=== PATIENT | female | born 1975 | race Caucasian/White ===

== ENCOUNTER → 2017-06-03 | Outpatient (CLI) | payer BC ==
[~2017-06-03] MED LIST: K-Dur20 MEQ PO; LINZESS72 MCG; MELA3; TAMO10; TRAM50; Tamiflu75 MG PO
[2017-06-03 15:51] LABS: BASOPHILS ABSOLUTE AUTO 0.05 K/mm3 (0.00-0.23); BASOPHILS PERCENT AUTO 1 % (0-2); EOSINOPHILS ABSOLUTE AUTO 0.08 K/mm3 (0.00-0.68); EOSINOPHILS PERCENT AUTO 1 % (0-6); Hematocrit 38.5 % (33.0-51.0); Hemoglobin 13.3 g/dL (11.5-16.0); IMMATURE GRAN ABSOLUTE AUTO 0.01 K/mm3 (0.00-0.10); IMMATURE GRAN PERCENT AUTO 0 % (0-1); LYMPHOCYTES ABSOLUTE AUTO 2.26 K/mm3 (0.84-5.20); LYMPHOCYTES PERCENT AUTO 38 % (21-46); MONOCYTES ABSOLUTE AUTO 0.32 K/mm3 (0.16-1.47); MONOCYTES PERCENT AUTO 5 % (4-13); Mean Corpuscular HGB 30.6 pg (26.0-34.0); Mean Corpuscular HGB Conc 34.5 g/dL (31.5-36.5); Mean Corpuscular Volume 89 fL (80-100); Mean Platelet Volume 10.7 fL (9.1-12.4); NEUTROPHILS ABSOLUTE AUTO 3.28 K/mm3 (1.96-9.15); NEUTROPHILS PERCENT AUTO 55 % (41-73); Platelet Count 143 K/mm3 (150-400); RDW Coefficient Variation 13.1 % (11.7-14.2); RDW Standard Deviation 42.5 fL (35.1-46.3); Red Blood Cell Count 4.34 M/mm3 (3.80-5.20)
[2017-06-03 16:00] LABS: Alanine Aminotransfer (ALT/SGP 19 U/L (12-78); Albumin, Blood 4.3 g/dL (3.4-5.0); Albumin/Globulin Ratio 1.4 (0.8-1.8); Alk Phos 44 U/L (40-126); Anion Gap 10 mmol/L (6-16); Aspartate Aminotrans (AST/SGOT 16 U/L (12-37); Bilirubin, Total 0.4 mg/dL (0.1-1.0); Blood Urea Nitrogen 8 mg/dL (8-24); Bun/Creatinine Ratio 9.4 (12.0-20.0); CO2, Blood 27 mmol/L (21-32); Calcium, Blood 9.3 mg/dL (8.5-10.1); Chloride, Blood 103 mmol/L (98-108); Creatinine, Blood 0.85 mg/dL (0.40-1.00); Glomerular Filtration Rate >60 (60-); Glucose, Blood 80 mg/dL (70-99); Potassium, Blood 3.7 mmol/L (3.5-5.5); Sodium, Blood 140 mmol/L (136-145); Total Protein, Blood 7.3 g/dL (6.4-8.2)
== END | disposition home or self-care (01) ==
LOC: LAB 15:47
PROVIDERS: Physician Assistant Medical
DX: R10.84 Generalized abdominal pain (principal)
CPT/HCPCS: 80053; 83690; 85025

== ENCOUNTER 2017-06-05 23:49 | Emergency (ER) | payer BC ==
[~2017-06-05] VITALS: Ht 170.2 cm; Wt 56.7 kg
[2017-06-06] MEDS ORDERED: TAMO10 (00:44)
[2017-06-06] MEDS ORDERED: TRAM50 (00:44)
[2017-06-06] MEDS ORDERED: MELA3 (00:45)
[2017-06-06] MEDS ORDERED: LINZESS72 MCG (00:45)
[2017-06-06 01:13] LABS: Source, Urine Catheter
[2017-06-06 01:15] LABS: Bilirubin, Urine Neg (Neg); Blood, Urine Neg (Neg); Glucose Qualitative, Urine Neg (Neg); Ketones, Urine Neg (Neg); Leukocyte Esterase, Urine Neg (Neg); Nitrite, Urine Neg (Neg); Protein, Urine Neg (Neg); Specific Gravity, Urine 1.015 (1.003-1.022); Urobilinogen, Urine NORM (Normal)
[2017-06-06 01:21] LABS: Appearance, Urine Clear (Clear); Color, Urine Yellow (P-Yellow)
[2017-06-06 01:26] LABS: Influenza A Negative (NEGATIVE); Influenza B Negative (NEGATIVE)
[2017-06-06 01:53] LABS: BASOPHILS ABSOLUTE AUTO 0.01 K/mm3 (0.00-0.23); BASOPHILS PERCENT AUTO 0 % (0-2); EOSINOPHILS ABSOLUTE AUTO 0.01 K/mm3 (0.00-0.68); EOSINOPHILS PERCENT AUTO 0 % (0-6); Hematocrit 31.5 % (33.0-51.0); Hemoglobin 10.8 g/dL (11.5-16.0); IMMATURE GRAN ABSOLUTE AUTO 0.02 K/mm3 (0.00-0.10); IMMATURE GRAN PERCENT AUTO 1 % (0-1); International Normalized Ratio 1.07; LYMPHOCYTES ABSOLUTE AUTO 0.24 K/mm3 (0.84-5.20); LYMPHOCYTES PERCENT AUTO 8 % (21-46); MONOCYTES ABSOLUTE AUTO 0.29 K/mm3 (0.16-1.47); MONOCYTES PERCENT AUTO 9 % (4-13); Mean Corpuscular HGB 29.9 pg (26.0-34.0); Mean Corpuscular HGB Conc 34.3 g/dL (31.5-36.5); Mean Corpuscular Volume 87 fL (80-100); Mean Platelet Volume 11.1 fL (9.1-12.4); NEUTROPHILS ABSOLUTE AUTO 2.58 K/mm3 (1.96-9.15); NEUTROPHILS PERCENT AUTO 82 % (41-73); Platelet Count 98 K/mm3 (150-400); Prothrombin Time Results 11.2 Sec (9.7-11.5); RDW Coefficient Variation 12.7 % (11.7-14.2); RDW Standard Deviation 40.7 fL (35.1-46.3); Red Blood Cell Count 3.61 M/mm3 (3.80-5.20); White Blood Cell Count 3.15 K/mm3 (4.00-11.30)
[2017-06-06 01:57] LABS: Alanine Aminotransfer (ALT/SGP 14 U/L (12-78); Albumin, Blood 3.4 g/dL (3.4-5.0); Albumin/Globulin Ratio 1.2 (0.8-1.8); Alk Phos 34 U/L (50-136); Anion Gap 9 mmol/L (6-16); Aspartate Aminotrans (AST/SGOT 15 U/L (12-37); Bilirubin, Total 0.3 mg/dL (0.1-1.0); Blood Urea Nitrogen 7 mg/dL (8-24); Bun/Creatinine Ratio 8.4 (12.0-20.0); CO2, Blood 23 mmol/L (21-32); Calcium, Blood 7.6 mg/dL (8.5-10.1); Chloride, Blood 104 mmol/L (98-108); Creatinine, Blood 0.84 mg/dL (0.40-1.00); Globulin, Blood 2.8 g/dL (2.2-4.0); Glomerular Filtration Rate >60 (60-); Glucose, Blood 84 mg/dL (70-99); Potassium, Blood 2.6 mmol/L (3.5-5.5); Sodium, Blood 136 mmol/L (136-145); Total Protein, Blood 6.2 g/dL (6.4-8.2)
[2017-06-06] MEDS ORDERED: Tamiflu75 MG PO (05:55)
[2017-06-06] MEDS ORDERED: K-Dur20 MEQ PO (05:55)
== END 2017-06-06 06:49 | disposition home or self-care (01) ==
LOC: ER 23:49
PROVIDERS: Physician Assistant
DX: J11.1 Influenza due to unidentified influenza virus with other respiratory manifestations (principal); E87.6 Hypokalemia; Z88.5 Allergy status to narcotic agent; Z91.09 Other allergy status, other than to drugs and biological substances; Z79.899 Other long term (current) drug therapy; Z85.3 Personal history of malignant neoplasm of breast; Z90.10 Acquired absence of unspecified breast and nipple
CPT/HCPCS: 36415; 71046; 80053; 81000; 81003; 83605; 85025; 85610; 85730; 87040; 87086; 87804; 93005; 93010; 96361; 96365; 96375; 99283; J1885; J2001; J3480; J7030

== ENCOUNTER → 2018-08-24 | Outpatient (CLI) | payer BC | END | disposition home or self-care (01) | LOC: LAB SHORT 07:26 → PLD 07:26 | DX: N92.1 Excessive and frequent menstruation with irregular cycle (principal) | CPT/HCPCS: 88305 ==

== ENCOUNTER 2018-09-28 06:23 | Day surgery (SDC) | payer BC ==
[~2018-09-28] VITALS: Ht 167.6 cm; Wt 59.5 kg
[~2018-09-28 06:23] MED LIST changes: -MELA3; +MELA3 PO; +PROZAC PO; -TAMO10; +TAMO10 PO; -TRAM50; +TRAM50 PO
--- NOTE | 2018-09-28 06:42 | NUR ---
History, Chart, Medications and Allergies reviewed before start of procedure. Patient confirms NPO status and agrees with scheduled surgery. Lungs clear T/O to Auscultation. Pre-Op teaching done. Pt verbalizes understanding. Patient reports completing Chlorhexadine shower X2 prior to admission to hospital. PATIENT HAS NOSE PIERCING, DISCUSSED AND SIGNED CONSENT TO REMAIN IN PLACE.
--- NOTE | 2018-09-28 07:13 | NUR ---
ABRASIVE GRADER HELPER REPORT COMPLETED AT BEDSIDE WITH JUAN YUN RN.
[2018-09-29 05:07] LABS: BASOPHILS ABSOLUTE AUTO 0.03 K/mm3 (0.00-0.23); BASOPHILS PERCENT AUTO 0 % (0-2); EOSINOPHILS ABSOLUTE AUTO 0.13 K/mm3 (0.00-0.68); EOSINOPHILS PERCENT AUTO 1 % (0-6); Hematocrit 33.6 % (33.0-51.0); Hemoglobin 11.2 g/dL (11.5-16.0); IMMATURE GRAN ABSOLUTE AUTO 0.02 K/mm3 (0.00-0.10); IMMATURE GRAN PERCENT AUTO 0 % (0-1); LYMPHOCYTES ABSOLUTE AUTO 3.49 K/mm3 (0.84-5.20); LYMPHOCYTES PERCENT AUTO 36 % (21-46); MONOCYTES ABSOLUTE AUTO 0.86 K/mm3 (0.16-1.47); MONOCYTES PERCENT AUTO 9 % (4-13); Mean Corpuscular HGB 30.2 pg (26.0-34.0); Mean Corpuscular HGB Conc 33.3 g/dL (31.5-36.5); Mean Corpuscular Volume 91 fL (80-100); NEUTROPHILS ABSOLUTE AUTO 5.09 K/mm3 (1.96-9.15); NEUTROPHILS PERCENT AUTO 53 % (41-73); Platelet Count 151 K/mm3 (150-400); RDW Coefficient Variation 12.9 % (11.7-14.2); RDW Standard Deviation 42.4 fL (35.1-46.3); Red Blood Cell Count 3.71 M/mm3 (3.80-5.20); White Blood Cell Count 9.62 K/mm3 (4.00-11.30)
--- NOTE | 2018-09-29 06:21 | NUR ---
SUMMARY POD #1 NO ACUTE CHANGES THROUGH THE NIGHT. PT C/O NOT BEING ABLE TO HAVE A BM X2 DAYS. PT DRANK HER OWN "SMOOTH MOVE" TEA. REFUSING BOWEL CARE OPTIONS OFFERED. PT ENC TO WALK IN HALLS. PT DID AMBULATE X3. DENIES PASSING FLATUS. GUN PERFORATOR LOADER AT BEDSIDE. PT C/O OF PAIN BUT REFUSING ALTERNATIVE PAIN MANAGEMENT OPTIONS. PT APPEARS COMFORTABLE AND STATES "MAY BE MY BOWELS". DRSGS REMAIN C/D/I. PT DENIES VAGINAL DISCHARGE. URINE IS CLEAR. TOLERATING PO INTAKE. CALL LIGHT IN REACH. WCTM
[2018-09-29] MEDS ORDERED: Percocet 5-3251 EACH PO (12:26)
[2018-09-29] MEDS ORDERED: IBUP800 PO (12:27)
--- NOTE | 2018-09-29 13:01 | NUR ---
DISCHARGE PT DISCHARGED HOME AT THIS TIME. PT AND SIG OTHER EDUCATED ON AND RECEIVED PRINTED DC INSTRUCTIONS. BOTH VERB AN UNDERSTANDING. IV DC'D. HARD RX FOR PERCOCET AND MOTRIN GIVEN TO PT. PT ABLE TO VOID WITHOUT DIFFICULTY. PAIN CONTROLLED WITH ORAL MEDS. AMBULATING HALLWAY INDEP AND PASSING GAS. PT LEFT WITH ALL PERSONAL BELONGINGS.
== END 2018-09-29 13:03 | disposition home or self-care (01) ==
LOC: ORSCMMR 06:23 → ORD 07:30 → SURS 11:36 → ORSCMMR 09-29 13:03
PROVIDERS: Obstetrics & Gynecology
PROC: 0UT7FZZ Resection of Bilateral Fallopian Tubes, Via Natural or Artificial Opening With Percutaneous Endoscopic Assistance (ICD-10-PCS; principal; 2018-09-28 07:30)
PROC: 0UT2FZZ Resection of Bilateral Ovaries, Via Natural or Artificial Opening With Percutaneous Endoscopic Assistance (ICD-10-PCS; principal; 2018-09-28 07:30)
PROC: 0UT9FZZ Resection of Uterus, Via Natural or Artificial Opening With Percutaneous Endoscopic Assistance (ICD-10-PCS; principal; 2018-09-28 07:30)
DX: N92.1 Excessive and frequent menstruation with irregular cycle (principal); Z85.3 Personal history of malignant neoplasm of breast; Z17.0 Estrogen receptor positive status [ER+]; N84.0 Polyp of corpus uteri; N80.0 Endometriosis of uterus; D25.9 Leiomyoma of uterus, unspecified; F17.210 Nicotine dependence, cigarettes, uncomplicated; Z79.899 Other long term (current) drug therapy
CPT/HCPCS: 36415; 85025; 86850; 86900; 86901; 88108; 88307; J0690; J1100; J1200; J2250; J2370; J2405; J2704; J2710; J3010; J7030; J7120

== ENCOUNTER 2018-11-09 15:16 | Emergency (ER) | payer BC ==
[~2018-11-09] VITALS: Ht 167.6 cm; Wt 59.0 kg
[~2018-11-09 15:16] MED LIST changes: +IBUP800 PO; +Percocet 5-3251 EACH PO
[2018-11-09] MEDS ORDERED: Alprazolam0.5 MG PO (15:34)
[2018-11-09] MEDS ORDERED: GABA300 PO (15:35)
[2018-11-09] MEDS ORDERED: Ultram50 MG PO (15:36)
== END 2018-11-09 17:38 | disposition home or self-care (01) ==
LOC: ER 15:16
DX: F41.9 Anxiety disorder, unspecified (principal); Z88.5 Allergy status to narcotic agent; Z88.8 Allergy status to other drugs, medicaments and biological substances; Z79.899 Other long term (current) drug therapy; Z85.3 Personal history of malignant neoplasm of breast
CPT/HCPCS: 93005; 93010; 99283-25

== ENCOUNTER 2019-04-25 22:27 | Inpatient (IN) | payer BC ==
[~2019-04-25] VITALS: Ht 170.2 cm; Wt 63.9 kg
[~2019-04-25 22:27] MED LIST changes: +GABA300 PO
[2019-04-25 22:49] LABS: BASOPHILS ABSOLUTE AUTO 0.05 K/mm3 (0.00-0.23); BASOPHILS PERCENT AUTO 1 % (0-2); EOSINOPHILS ABSOLUTE AUTO 0.14 K/mm3 (0.00-0.68); EOSINOPHILS PERCENT AUTO 2 % (0-6); Hematocrit 42.7 % (33.0-51.0); Hemoglobin 14.5 g/dL (11.5-16.0); IMMATURE GRAN ABSOLUTE AUTO 0.04 K/mm3 (0.00-0.10); IMMATURE GRAN PERCENT AUTO 1 % (0-1); LYMPHOCYTES ABSOLUTE AUTO 2.14 K/mm3 (0.84-5.20); LYMPHOCYTES PERCENT AUTO 31 % (21-46); MONOCYTES ABSOLUTE AUTO 0.56 K/mm3 (0.16-1.47); MONOCYTES PERCENT AUTO 8 % (4-13); Mean Corpuscular HGB 29.9 pg (26.0-34.0); Mean Corpuscular Volume 88 fL (80-100); Mean Platelet Volume 10.5 fL (9.1-12.4); NEUTROPHILS ABSOLUTE AUTO 3.93 K/mm3 (1.96-9.15); NEUTROPHILS PERCENT AUTO 57 % (41-73); Platelet Count 201 K/mm3 (150-400); RDW Coefficient Variation 12.6 % (11.7-14.2); RDW Standard Deviation 41.3 fL (35.1-46.3); Red Blood Cell Count 4.85 M/mm3 (3.80-5.20); White Blood Cell Count 6.86 K/mm3 (4.00-11.30)
[2019-04-25] MEDS ORDERED: VENLAFAXINE HC150 MG PO (22:54)
[2019-04-25] MEDS ORDERED: Alprazolam0.5 MG PO (22:55)
[2019-04-25] MEDS ORDERED: ANAS1 PO (22:55)
[2019-04-25] MEDS ORDERED: BUPROPION XL150 M1 PO (22:57)
[2019-04-25] MEDS ORDERED: Ultram50 MG PO (22:58)
[2019-04-25] MEDS ORDERED: Allegra-D 24 H1 EACH PO (23:00)
[2019-04-25 23:07] LABS: Alanine Aminotransfer (ALT/SGP 28 U/L (12-78); Albumin, Blood 4.4 g/dL (3.4-5.0); Albumin/Globulin Ratio 1.4 (0.8-1.8); Alk Phos 77 U/L (50-136); Anion Gap 5 mmol/L (6-16); Aspartate Aminotrans (AST/SGOT 20 U/L (12-37); Bilirubin, Total 0.4 mg/dL (0.1-1.0); Blood Urea Nitrogen 9 mg/dL (8-24); Bun/Creatinine Ratio 8.6 (12.0-20.0); CO2, Blood 28 mmol/L (21-32); Calcium, Blood 9.6 mg/dL (8.5-10.1); Chloride, Blood 105 mmol/L (98-108); Creatinine, Blood 1.05 mg/dL (0.40-1.00); Ethanol (Alcohol), Blood, Med <3 mg/dL; Globulin, Blood 3.1 g/dL (2.2-4.0); Glomerular Filtration Rate >60 (60-); Glucose, Blood 74 mg/dL (70-99); Potassium, Blood 3.3 mmol/L (3.5-5.5); Salicylate <1.7 mg/dL (2.8-20.0); Sodium, Blood 138 mmol/L (136-145); Total Protein, Blood 7.5 g/dL (6.4-8.2)
[2019-04-25 23:09] LABS: Acetaminophen, Random <2.0 ug/mL (10.0-30.0)
[2019-04-25 23:32] LABS: Source, Urine Catheter
[2019-04-25 23:36] LABS: Appearance, Urine Clear (Clear); Bilirubin, Urine Neg (Neg); Blood, Urine Neg (Neg); Color, Urine Yellow (P-Yellow); Glucose Qualitative, Urine Neg (Neg); Ketones, Urine Neg (Neg); Leukocyte Esterase, Urine Neg (Neg); Nitrite, Urine Neg (Neg); Protein, Urine Neg (Neg); Specific Gravity, Urine 1.005 (1.003-1.022); Urobilinogen, Urine NORM (Normal)
[2019-04-25 23:46] LABS: U Amphetamine Screen Not Detected; U Barbituate Screen Not Detected; U Benzodiazapine Screen Not Detected; U Buprenorphine Screen Not Detected; U Cannabinoids Screen Not Detected; U Cocaine Screen Not Detected; U Methadone Screen Not Detected; U Methamphetamine Screen Not Detected; U Opiates Screen Not Detected; U Oxycodone Screen Not Detected; U Phencyclidine Screen Not Detected; U Propoxyphene Screen Not Detected
--- NOTE | 2019-04-26 00:25 | NUR ---
ADMIT ASSESSMENT PT ADMITTED TO ICU 07 VIA ER. PT INTUBATED AND ON MECH VENT. CURRENT VENT SETTINGS AC 16 TV 400 PEEP 5 FIO2 25%. LUNGS CLEAR. PT TRANSFERED OVER TO BED WITH SLIDER SHEET AND 4 STAFF MEMBERS. PT GRIMACING TO PAINFUL STIMULI ONLY. BILAT SOFT WRIST RESTRAINTS ON. HEART RATE REGULAR. BP STABLE. BT+ ABD SOFT. OG TO LIS. IV 18G TO LEFT AC WITH PROPOFOL AT 45 MCQ/KG/MIN, SITE CLEAR. 22G TO LEFT FOREARM SALINE LOCKED, SITE CLEAR. 18G TO RIGHT WRIST WITH NS BOLUS INFUSING. AGUILLON CATH PATENT AND DRAINING CLEAR YELLOW URINE. TEMP 96.6. WARM BLANKETS APPLIED. SKIN CLEAR AND INTACT. EXT X4 STIFF AND UNABLE TO BEND. PUPLES 3 AND SLUGGLISH. ET TUBE 8.[address] NEWTON INTO SEE PT. NO FAMILY HERE.
--- NOTE | 2019-04-26 01:47 | NUR ---
POISON CONTROL RECEIVED CALL FROM GEE AT POISON CONTROL. UPDATE GIVEN.
[2019-04-26 01:48] LABS: U Amphetamine Screen Not Detected; U Barbituate Screen Not Detected; U Benzodiazapine Screen DETECTED; U Buprenorphine Screen Not Detected; U Cannabinoids Screen Not Detected; U Cocaine Screen Not Detected; U Methadone Screen Not Detected; U Methamphetamine Screen Not Detected; U Opiates Screen Not Detected; U Oxycodone Screen Not Detected; U Phencyclidine Screen Not Detected; U Propoxyphene Screen Not Detected
[2019-04-26 02:12] LABS: Magnesium, Blood 2.1 mg/dL (1.6-2.4); Phosphorus, Blood 1.7 mg/dL (2.5-4.9)
--- NOTE | 2019-04-26 07:18 | NUR ---
SHIFT SUMMARY PT CONT INTUBATED AND ON [facility] VENT. VENT SETTINGS AC 16 TV 400 PEEP 5 FIO2 21%. PT SEDATED WITH PROPOFOL AT 45 MCQ/KG/MIN, ATIVAN AND FENTANYL PRN FOR SEDATION ADJUNCT. LUNGS CLEAR. HEART RATE REGULAR. BP STABLE. BT+ ABD SOFT, OG WITH LIS, NO OUTPUT. AGUILLON CATH PATENT DRAINING YELLOW URINE. VSS. REPORT TO ON COMING NURSE
--- NOTE | 2019-04-26 08:00 | NUR ---
INITIAL ASSESMENT PT SEDATED BUT AROUSABLE TO PAINFUL STIM AND WILL SIT UP IN BED AND RESIST VENT. WILL NOT FOLLOW COMMANDS OR DEESCALATE VIA VERBAL REDIRECTION OR SUPPORT. TITRATING PROPOFOL PER MD ORDER. PUPILS EQUAL AND REACTIVE. UNABLE TO COMPLETE Q SHIFT SUICIDE ASSESMENT AT THIS TIME PT IS SEDATED. VSS, AFEBRILE PALP PULSES T/O NO EDEMA, SR IN THE 60S. 8.0 , 24 AT THE LIP SCANT WHITE SECREATIONS, CLEAR T/O NO S/S OF RESP DISTRESS AND STRONG COUGH. OG IN PLACE WITH SCANT CLEAR OUTPUT. BTS T/O NO BM. UO ADEQUATE CLEAR AND YELLOW. WILL CONT TO MONITOR
[2019-04-26 09:57] LABS: Alanine Aminotransfer (ALT/SGP 20 U/L (12-78); Albumin, Blood 2.9 g/dL (3.4-5.0); Alk Phos 54 U/L (50-136); Anion Gap 8 mmol/L (6-16); Aspartate Aminotrans (AST/SGOT 20 U/L (12-37); Bilirubin, Total 0.4 mg/dL (0.1-1.0); Blood Urea Nitrogen 7 mg/dL (8-24); Bun/Creatinine Ratio 7.4 (12.0-20.0); CO2, Blood 22 mmol/L (21-32); Calcium, Blood 7.7 mg/dL (8.5-10.1); Chloride, Blood 114 mmol/L (98-108); Creatinine, Blood 0.94 mg/dL (0.40-1.00); Glomerular Filtration Rate >60 (60-); Glucose, Blood 100 mg/dL (70-99); Phosphorus, Blood 3.7 mg/dL (2.5-4.9); Potassium, Blood 3.5 mmol/L (3.5-5.5); Sodium, Blood 144 mmol/L (136-145)
[2019-04-26 09:59] LABS: Albumin/Globulin Ratio 1.2 (0.8-1.8); Globulin, Blood 2.4 g/dL (2.2-4.0); Total Protein, Blood 5.3 g/dL (6.4-8.2)
--- NOTE | 2019-04-26 12:00 | NUR ---
PT UPDATE PT REMAINS INTUBATED AND SEDATED. WILL AROUSE TO PAINFUL STIM AND SIT UP UN BED, TITRATING PROP PER MD ORDERS. VSS, TOLERATING VENT SETTINGS, UO ADEQUATE. WILL TRY FOR EXTUBATION TOMM AM PER MD.
--- NOTE | 2019-04-26 20:00 | NUR ---
ASSUMPTION OF CARE: PT INTUBATED AND SEDATED AND RESPONDING TO PAIN AND REPOSITIONING. NSR WITH HR IN THE 60-70S AND SBP 90-110S. ETT 8.0, 24 AT LIP. SETTINGS ARE 15/400/PEEP 5, FIO2 21%. LUNG SOUNDS CLEAR THROUGHOUT. SPO2 >90. BT PRESENT, OG IN PLACE CONNECTED TO LIS. TEMP AGUILLON IN PLACE DRAINING CLEAR YELLOW URINE. 18G IN R WRIST AND LAC. INFUSING WITH D5 1/2NS AT 125 ML, PROPOFOL AT 55MCG. WILL CONTINUE TO MONITOR
--- NOTE | 2019-04-27 00:02 | NUR ---
UNABLE TO COMPLETE [place] SUICIDE SCALE D/T PT BEING INTUBATED AND SEDATED
--- NOTE | 2019-04-27 05:55 | NUR ---
SHIFT SUMMARY: PT INTUBATED AND SEDATED, RESPONDING TO PAINFUL STIMULI. IN SR, HR AND SBP STABLE. HR IN THE 60-70S, SBP IN THE 90-120S. VENT SETTINGS 15/400/5/21%. SPO2 >90%. LUNG SOUNDS CLEAR. BT PRESENT, NO BM. OG IN PLACE CONNECTED TO LIS. TEMP AGUILLON IN PLACE DRAINING CLEAR YELLOW URINE. 18G IV IN R WRIST AND LAC. BOTH INFUSING. PROP CURRENTLY AT 45MCG AND D5 1/2NS AT 125ML/HR. SPONTANEOUS BREATHING TRIAL PERFORMED. PT TOLERATED, WAS ABLE TO NOD HEAD YES/NO AND OPEN EYES. WAS ALSO ABLE TO TAKE DEEP BREATHS WHEN PROMPTED. PT GIVEN 4MG IV ATIVAN X 2. WILL GIVE REPORT TO NEXT SHIFT
--- NOTE | 2019-04-27 08:00 | NUR ---
PT SEDATED BUT AROUSABLE TO PAINFUL STIM AND WILL SIT UP IN BED AND RESIST VENT. WILL NOT FOLLOW COMMANDS. PUPILS EQUAL AND REACTIVE. TITRATING PROPOFOL PER MD ORDER AND WILL WEAN OFF TO EXTUBATE PER MD. COMPLETE Q SHIFT SUICIDE ASSESMENT AT THIS TIME PT IS SEDATED. VSS, AFEBRILE PALP PULSES T/O NO EDEMA, SR IN THE 60S. 8.0 , 24 AT THE LIP SCANT WHITE SECREATIONS, CLEAR T/O NO S/S OF RESP DISTRESS AND STRONG COUGH. OG IN PLACE WITH SCANT YELLOW OUTPUT. BTS T/O, NO BM. UO ADEQUATE CLEAR AND YELLOW. WILL CONT TO MONITOR
[2019-04-27 08:42] LABS: BASOPHILS ABSOLUTE AUTO 0.04 K/mm3 (0.00-0.23); BASOPHILS PERCENT AUTO 1 % (0-2); EOSINOPHILS ABSOLUTE AUTO 0.17 K/mm3 (0.00-0.68); EOSINOPHILS PERCENT AUTO 2 % (0-6); Hematocrit 46.1 % (33.0-51.0); Hemoglobin 14.9 g/dL (11.5-16.0); IMMATURE GRAN ABSOLUTE AUTO 0.01 K/mm3 (0.00-0.10); IMMATURE GRAN PERCENT AUTO 0 % (0-1); LYMPHOCYTES ABSOLUTE AUTO 2.08 K/mm3 (0.84-5.20); LYMPHOCYTES PERCENT AUTO 30 % (21-46); MONOCYTES ABSOLUTE AUTO 0.82 K/mm3 (0.16-1.47); MONOCYTES PERCENT AUTO 12 % (4-13); Mean Corpuscular HGB 29.6 pg (26.0-34.0); Mean Corpuscular HGB Conc 32.3 g/dL (31.5-36.5); Mean Platelet Volume 10.9 fL (9.1-12.4); NEUTROPHILS PERCENT AUTO 56 % (41-73); Platelet Count 160 K/mm3 (150-400); RDW Coefficient Variation 13.2 % (11.7-14.2); RDW Standard Deviation 44.3 fL (35.1-46.3); Red Blood Cell Count 5.03 M/mm3 (3.80-5.20); White Blood Cell Count 7.02 K/mm3 (4.00-11.30)
[2019-04-27 08:43] LABS: Mean Corpuscular Volume 92 fL (80-100)
[2019-04-27 08:57] LABS: Magnesium, Blood 2.1 mg/dL (1.6-2.4)
[2019-04-27 08:58] LABS: Alanine Aminotransfer (ALT/SGP 24 U/L (12-78); Albumin, Blood 3.3 g/dL (3.4-5.0); Albumin/Globulin Ratio 1.1 (0.8-1.8); Alk Phos 64 U/L (50-136); Anion Gap 6 mmol/L (6-16); Aspartate Aminotrans (AST/SGOT 28 U/L (12-37); Bilirubin, Total 0.4 mg/dL (0.1-1.0); Blood Urea Nitrogen 3 mg/dL (8-24); Bun/Creatinine Ratio 3.6 (12.0-20.0); CO2, Blood 24 mmol/L (21-32); Calcium, Blood 8.8 mg/dL (8.5-10.1); Chloride, Blood 113 mmol/L (98-108); Creatinine, Blood 0.84 mg/dL (0.40-1.00); Globulin, Blood 3.1 g/dL (2.2-4.0); Glomerular Filtration Rate >60 (60-); Glucose, Blood 84 mg/dL (70-99); Phosphorus, Blood 3.7 mg/dL (2.5-4.9); Potassium, Blood 3.6 mmol/L (3.5-5.5); Sodium, Blood 143 mmol/L (136-145); Total Protein, Blood 6.4 g/dL (6.4-8.2)
--- NOTE | 2019-04-27 11:35 | NUR ---
PT UPDATE PT EXTUBATED MD AWARE, RT BEDSIDE, OG D/C WELL. TOLERATED WELL ON RA WITH SATS WNL, CLEAR T/O VOCALIZES, FOLLOWS COMMANDS, CRYING AND CONSOLED, VSS AND WILL CONT TO MONITOR
--- NOTE | 2019-04-27 17:00 | NUR ---
PT UPDATE PT NOW MEDICAL STATUS. 1:1 REMAINS, VSS, PT RESTING IN BED. TEARFUL AND COOPERATIVE. WILL CONT TO MONITOR
--- NOTE | 2019-04-27 19:59 | NUR ---
ASSUMED CARE OF PT AT 1915. REPORT RECEIVED PARTIALLY AT BEDSIDE. PT PRESENTS IN BED. HAS VERY TEARFUL CONVERSATION. VOICES SOME CONCERNS ABOUT HER "CHEMO" MEDICATION. WILL ADDRESS. PT HAS 1:1 SITTER IN ROOM FOR PATIENT SAFETY. PT DOES NOT OPENLY VOICE CONTINUED IDEATIONS, BUT DOES ADD SHE DOES NOT WANT TO BE HERE. WILL CONTINUE TO CLOSELY MONITOR. WILL REVIEW CHART AND PLAN OF CARE FOR THIS PT.
--- NOTE | 2019-04-28 | NUR ---
PT REMAINS A 1:1 SITTER PATIENT. PT WAS MOSTLY NONVERBAL AND EVASIVE WITH QUESTIONS IF SHE IS STILL HAVING S.I. OR PLANS. REMAINS VERY WITHDRAWN AND GAURDED. WILL CONTINUE TO MONITOR.
--- NOTE | 2019-04-28 06:04 | NUR ---
PT HAS BEEN VERY RELUCTANTED TO SPEAK THIS NIGHT. DID CRY MOST OF EVENING AND THEN HAS BEEN ABLE TO SLEEP. NO VERBALIZED PLANS OF SELF HARM OR ACTIONS AT THIS TIME. POISON CONTROL HAS CALLED AND HAS OPTED TO REMOVE THEIR SERVICE AT THIS TIME. CONTINUING WITH 1:1 SITTER WITH ADDITION TO REMOTE CAMERA VIEWING FOR PATIENT SAFETY. WILL CONTINUE TO MONITOR PT, AND WILL REPORT OFF TO ONCOMING RN.
--- NOTE | 2019-04-28 07:30 | NUR ---
START OF SHIFT NOTE: RECEIVED REPORT FROM ANGIE OSHEA, ASSUMED CARE, PATIENT IS AWAKE AND TEARFUL, ALERT AND ORIENTED, STILL THINKING AND VERBALIZING THOUGHTS ABOUT SUICIDE, FEELING HOPELESS, VSS, SLIGHTLY ELEVATED TEMP AT 99.1, DENIES PAIN, LUNG SOUNDS CLEAR, SR, TEMP AGUILLON IN PLACE, SITTER AT BEDSIDE, CALL LIGHT IN REACH, WILL CONTINUE TO MONITOR.
[2019-04-28 07:31] LABS: BASOPHILS ABSOLUTE AUTO 0.03 K/mm3 (0.00-0.23); BASOPHILS PERCENT AUTO 1 % (0-2); EOSINOPHILS ABSOLUTE AUTO 0.11 K/mm3 (0.00-0.68); EOSINOPHILS PERCENT AUTO 2 % (0-6); Hematocrit 42.8 % (33.0-51.0); Hemoglobin 14.2 g/dL (11.5-16.0); IMMATURE GRAN ABSOLUTE AUTO 0.03 K/mm3 (0.00-0.10); IMMATURE GRAN PERCENT AUTO 1 % (0-1); LYMPHOCYTES ABSOLUTE AUTO 1.78 K/mm3 (0.84-5.20); LYMPHOCYTES PERCENT AUTO 31 % (21-46); MONOCYTES ABSOLUTE AUTO 0.52 K/mm3 (0.16-1.47); MONOCYTES PERCENT AUTO 9 % (4-13); Mean Corpuscular HGB 29.7 pg (26.0-34.0); Mean Corpuscular HGB Conc 33.2 g/dL (31.5-36.5); Mean Corpuscular Volume 90 fL (80-100); Mean Platelet Volume 10.6 fL (9.1-12.4); NEUTROPHILS ABSOLUTE AUTO 3.25 K/mm3 (1.96-9.15); NEUTROPHILS PERCENT AUTO 57 % (41-73); Platelet Count 166 K/mm3 (150-400); RDW Coefficient Variation 12.6 % (11.7-14.2); Red Blood Cell Count 4.78 M/mm3 (3.80-5.20); White Blood Cell Count 5.72 K/mm3 (4.00-11.30)
--- NOTE | 2019-04-28 08:20 | NUR ---
MARCELLA, DIRECTOR BEHAVIORAL HEALTH IN TO SEE PATIENT AND SPEAK WITH HER, NO SAFETY PLAN DONE OF YET D/T PATIENT'S CONTINUOUS SI'S, MARCELLA WILL LET DR. LOPEZ KNOW AND ALSO WILL SPEAK WITH TERRENCE SINGH, CARE MANAGEMENT ABOUT POSSIBLE INPATIENT TREATMENT.
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
--- NOTE | 2019-04-28 11:50 | NUR ---
MENTAL HEALTH IN TO SEE PATIENT, PATIENT ASKED TO CALL HER SON, THIS RN DIALED NUMBER D/T IT BEING LONG DISTANCE, BUT NO ANSWER, MESSAGE LEFT, PATIENT IS AWAITING SON'S CALL BACK.
--- NOTE | 2019-04-28 12:11 | NUR ---
PATIENT UP TO SHOWER WITH SITTER AND PROFESSOR OF FOOD BIOCHEMISTRY, WILL CONTINUE TO MONITOR.
--- NOTE | 2019-04-28 12:19 | NUR ---
DR. LOPEZ IN TO SEE PATIENT.
--- NOTE | 2019-04-28 13:14 | NUR ---
DR. LOPEZ IN TO SEE PATIENT, DROPPED ALL PRECAUTIONS, PATIENT MAY LEAVE IF OK WITH , DR. LOPEZ WILL SPEAK WITH DR. NEWTON.
--- NOTE | 2019-04-28 13:15 | NUR ---
PATIENT'S MOTHER IN TO VISIT, ALSO PATIENT'S , HOWEVER REMAINED OUTSIDE THE ICU AND WAS UPDATED ON PATIENT CONDITION.
--- NOTE | 2019-04-28 14:31 | NUR ---
PATIENT'S MOTHER AT BEDSIDE, ALSO MARCELLA BEHAVIORAL HEALTH IN TO SPEAK WITH PATIENT AND MOTHER, CALL LIGHT IN REACH, WILL CONTINUE TO MONITOR.
--- NOTE | 2019-04-28 15:48 | NUR ---
CALLED REPORT TO AL VALERIO RN, ON SUGICAL FLOOR, WILL TRANSFER PATIENT TO ROOM 223 VIA WHEELCHAIR.
--- NOTE | 2019-04-28 16:05 | NUR ---
PT TRANSFER TO 223. PT A/O. PT DENIES CP/SOB, N/V, N/T. VSS. DENIES ANY THOUGHTS OF SUICIDE. THIS RN BEEN GIVEN REPORT AND IS ASSUMING CARE OF PT AT THIS TIME.
--- NOTE | 2019-04-28 17:31 | NUR ---
DR NEWTON CALLED, TALKED TO RN AND PT. DR NEWTON REPORTS WILL CANCEL DISCHARGE AT THIS TIME. OK FOR PT TO HAVE NO IV. DR FISHMAN WILL PLAN D/C FOR TOMMORROW WITH PLAN FOR PT TO TALK WITH [facility].
--- NOTE | 2019-04-29 00:37 | NUR ---
PT FOUND ON FLOOR NEXT TO BED AT APPROX. 2004 ON 04/28/19; SEE POST FALL ASSESSMENT. PT CURRENTLY UP IN ROOM IND BRUSHING TEETH W/MONITORING IN PLACE. DENIES ANY DISCOMFORT OR DIZZINESS. WILL CONTINUE TO MONITOR.
--- NOTE | 2019-04-29 04:14 | NUR ---
SHIFT SUMMARY PT A/0X4 WITH VSS. DENIES S.I. PLEASANT AND COOPERATIVE, ENGAGED IN SEVERAL CONVERSATIONS T/O SHIFT. SBA IN ROOM, SEE POST-FALL ASSESSMENT. CURRENTLY RESTING IN BED WITH CALL LIGHT IN REACH. WILL CONT. TO MONITOR AND GIVE REPORT TO ONCOMING RN. FALL EARLY IN SHIFT TODAY. VERBALIZES NEEDS APPROPRIATELY.
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
--- NOTE | 2019-04-29 16:58 | NUR ---
TELEPHONE CALL TO PCP DR NEWTON WITH STATUS UPDATES; APPROVES PT DISCHARGING.
[2019-04-29] MEDS ORDERED: VENL150ER PO (17:16)
--- NOTE | 2019-04-29 17:45 | NUR ---
SHIFT SUMMARY PT A&OX4, VSS, WALKED OFF FLOOR WITH SISTER & SISTER N LAW, WHO BROUGHT IN PT'S PURSE, KEYS, CAR. I CALLED AND TALKED TO CAMILO WITH A LIST FROM PT OF WHAT BELONGINGS TO PUT INTO VEHICLE FOR PT TO HAVE WHILE STAYING AWAY FROM HOME. DC INSTRUCTIONS PROVIDED. PT REP UNDERSTANDING THOSE INSTRUCTIONS INCLUDING FU WITH DR NEWTON 05/02 AT 2:40PM AND WALK INTO [facility] ON 05/02-9-3PM TO BEGIN COUNSELING. TELEPHONE CALL WITH PHARMACY - PHARMACIST UPDATED MED REC AND DC'D ALL MEDS AND STARTED EFFEXOR IR 150 MG BEDTIME #30. PT STATED SHE WOULD HEAD STRAIGHT TO PHARMACY TO MOLD CLOSER. SISTER IN LAW INSTRUCTED TO RETURN ARIMEDEX TO PT BUT THAT ALL OTHER MEDS, EXCEPT FOR THIS NEW SCRIPT AT PHARMACY READY FOR MOLD CLOSER, HAVE BEEN DC'D.
== END 2019-04-29 17:45 | disposition home or self-care (01) | DRG 918 ==
LOC: ER 22:27 → ICUE 04-26 00:05 → ICUW 04-26 00:05 → ICUE 04-26 00:09 → ER 04-26 00:09 → ICUW 04-26 00:09 → ICUE 04-26 00:19 → SURS 04-28 16:05
PROVIDERS: Emergency Medicine; ADMIT Family Medicine
PROC: 0BH17EZ Insertion of Endotracheal Airway into Trachea, Via Natural or Artificial Opening (ICD-10-PCS; principal; 2019-04-25)
PROC: 5A1945Z Respiratory Ventilation, 24-96 Consecutive Hours (ICD-10-PCS; 2019-04-26)
DX: T40.4X2A Poisoning by other synthetic narcotics, intentional self-harm, initial encounter (principal); F33.9 Major depressive disorder, recurrent, unspecified; F41.9 Anxiety disorder, unspecified; C50.919 Malignant neoplasm of unspecified site of unspecified female breast; F17.200 Nicotine dependence, unspecified, uncomplicated; Z17.0 Estrogen receptor positive status [ER+]; Z79.811 Long term (current) use of aromatase inhibitors; Z79.899 Other long term (current) drug therapy; Z90.13 Acquired absence of bilateral breasts and nipples
CPT/HCPCS: 31500; 31720; 36415; 51702; 71045; 80053; 81003; 81025; 83735; 84100; 85025; 93005; 93010; 94002; 94003; 96372; 96374; 96374-59; 96375-59; 96376; 99291-25; C9113; G0378; G0480; J0330; J1650; J2060; J2250; J2704; J3010; J3480; J7030; J7042; J7060